=== PATIENT | female | born 1960 | race Caucasian/White ===

== ENCOUNTER 2022-05-08 13:29 | Outpatient (CLI) | payer SELFPAY ==
[2022-05-08 15:06] LABS: Albumin* 4.5 g/dL (3.3-5.0)
[2022-05-08 15:07] LABS: Chloride* 102 mmol/L (96-114); Potassium* 4.7 mmol/L (3.6-5.1); Sodium* 138 mmol/L (135-149)
[2022-05-08 15:09] LABS: Aspartate Amino Transferase* 28 U/L (12-35); Bilirubin Total* 0.8 mg/dL (0.1-1.5); Blood Urea Nitrogen* 13 mg/dL (7-30); Carbon Dioxide* 30 mmol/L (20-32); Cholesterol* 245 mg/dL (90-199); Creatinine* 0.9 mg/dL (0.5-1.5); Estimated Glomerular Filt Rate 72 ml/min; Glucose* 86 mg/dL (60-115)
[2022-05-08 15:10] LABS: Alanine Aminotransferase* 22 U/L (4-35); Alkaline Phosphatase* 55 U/L (40-150); Calcium* 9.3 mg/dL (8.4-10.6); HDL Cholesterol* 50 mg/dL (>=50); LDL Cholesterol Calculated 174 mg/dL (<100); Triglycerides* 103 mg/dL (40-149)
== END 2022-05-08 13:30 | disposition home or self-care (01) ==
PROVIDERS: PCP Physician Assistant Medical; Visit Provider Physician Assistant Medical
DX: Z00.00 Encounter for general adult medical examination without abnormal findings (principal); E78.5 Hyperlipidemia, unspecified; Z13.29 Encounter for screening for other suspected endocrine disorder
CPT/HCPCS: 80053; 80061; 84443

== ENCOUNTER 2022-06-03 10:11 | Outpatient (CLI) | payer SELFPAY ==
--- NOTE | 2022-06-03 10:45 | CRLHL7_ITS ---
For Patients: As a result of the Century Cures Act, medical imaging exams and procedure reports are released immediately into your electronic medical record. You may view this report before your referring provider. If you have questions, please contact your health care provider. BILATERAL SCREENING MAMMOGRAM WITH COMPUTER-AIDED DETECTION AND TOMOSYNTHESIS TECHNIQUE: CC and MLO views were obtained. These mammographic images have been obtained using full-field digital technique. These mammographic images were interpreted with the benefit of computer-aided detection. Breast Tomosynthesis was used in this interpretation. COMPARISON FILM: 09/14/20, 07/01/18. FINDINGS: The breasts are heterogeneously dense, which may obscure small masses IMPRESSION: There is no radiographic evidence for malignancy. ASSESSMENT: BI-RADS Category 2: Benign RECOMMENDATION: Routine screening mammogram in 1 year. A lay language report of this examination will be provided to the patient. Gerardo Mills M.D. Diagnostic Radiologist [email or web address] ENEDINA/Dictated by: Gerardo Mills MD @ 06/03/2022 11:30:00 AM (Electronically Signed)
== END 2022-06-03 10:12 | disposition home or self-care (01) ==
LOC: MAMMO 10:18
PROVIDERS: PCP Physician Assistant Medical; Visit Provider Physician Assistant Medical
DX: Z12.31 Encounter for screening mammogram for malignant neoplasm of breast (principal); R92.2 Inconclusive mammogram
CPT/HCPCS: 77063; 77067

== ENCOUNTER 2022-10-03 09:36 | Outpatient (CLI) | payer SELFPAY | END 2022-10-03 09:37 | disposition home or self-care (01) | LOC: NFLDREF 10-04 08:37 | PROVIDERS: PCP Physician Assistant Medical; Referring Provider Physician Assistant Medical; Visit Provider Physician Assistant Medical | DX: E78.5 Hyperlipidemia, unspecified (principal) | CPT/HCPCS: 80061; 80076 ==

== ENCOUNTER 2024-02-03 09:09 | Outpatient (CLI) | payer MEDICARE, SELFPAY | END 2024-02-03 09:10 | disposition home or self-care (01) | PROVIDERS: PCP Physician Assistant Medical; Visit Provider Physician Assistant Medical | DX: Z13.21 Encounter for screening for nutritional disorder (principal); E78.5 Hyperlipidemia, unspecified; L60.8 Other nail disorders; Z13.0 Encounter for screening for diseases of the blood and blood-forming organs and certain disorders involving the immune mechanism; Z13.6 Encounter for screening for cardiovascular disorders; Z13.1 Encounter for screening for diabetes mellitus | CPT/HCPCS: 80053; 80061; 82306; 82607; 84443 ==

== ENCOUNTER 2024-04-13 13:40 | Outpatient (CLI) | payer MEDICARE, SELFPAY ==
--- NOTE | 2024-04-13 14:00 | CRLHL7_ITS ---
For Patients: As a result of the Century Cures Act, medical imaging exams and procedure reports are released immediately into your electronic medical record. You may view this report before your referring provider. If you have questions, please contact your health care provider. BILATERAL SCREENING MAMMOGRAM WITH COMPUTER-AIDED DETECTION AND TOMOSYNTHESIS TECHNIQUE: CC and MLO views were obtained. These mammographic images have been obtained using full-field digital technique. These mammographic images were interpreted with the benefit of computer-aided detection. Breast Tomosynthesis was used in this interpretation. COMPARISON FILM: 06/03/22, 09/14/20, 07/01/18. FINDINGS: The breasts are heterogeneously dense, which may obscure small masses. IMPRESSION: There is no radiographic evidence for malignancy. ASSESSMENT: BI-RADS Category 1: Negative RECOMMENDATION: Routine screening mammogram in 1 year. A lay language report of this examination will be provided to the patient. Gerardo Mills M.D. Diagnostic Radiologist [email or web address] SP/Dictated by: Gerardo Mills MD @ 04/15/2024 12:14:00 PM (Electronically Signed)
--- NOTE | 2024-04-13 14:30 | CRLHL7_ITS ---
For Patients: As a result of the Century Cures Act, medical imaging exams and procedure reports are released immediately into your electronic medical record. You may view this report before your referring provider. If you have questions, please contact your health care provider. DXA BONE MINERAL DENSITY STUDY Current height (in): 64. Weight (lb): 160. Menopause age: 51. Ethnicity: White. 1. Have you had a previous hip or vertebral fracture? No. 2. Have you had any fractures during your adult life which did not result from significant trauma (e.g., auto accident)? No. 3. Did either of your parents have a hip fracture? No. 4. Do you smoke? No. 5. Have you ever taken Glucocorticoids? No. 6. Do you have rheumatoid arthritis? No. 7. Do you have secondary osteoporosis? No. 8. Do you drink 3 or more alcoholic drinks per day? No. 9. Are you being treated for osteoporosis? No. 10. Have you ever taken any of the following medications: Actonel, Evista, Fosamax, Miacalcin, Reclast, Boniva, Forteo, HRT (i.e. estrogen/hormone therapy), Protelos, Prolia, Vitamin D, Calcium, other ??? please specify. ANSWER: Yes, vitamin D, calcium. 11. Do you have any of the following medical conditions: Anorexia or bulimia, asthma or emphysema, end stage renal disease, hyperparathyroidism, any seizure disorders, cancer, inflammatory bowel diseases, hysterectomy, other ??? please specify. ANSWER: No. 12. What was your maximum height (inches)? 64.5. 13. Do you perform weight bearing exercise regularly? Yes. 14. Do you regularly consume dairy products? Yes. 15. Do you drink caffeinated beverages? Yes. 16. At what age did your period start? 12. 17. Are you premenopausal? No. 18. How many full term pregnancies have you had? 1. 19. Have you ever missed your period for more than 6 months in a row (not including or menopause)? No. TECHNIQUE: Bone mineral density study was performed using the [employer]. FINDINGS: The results of the study expressed as bone mineral density (BMD) are as follows: Lumbar spine L1 to L4: BMD: 0.890 g/cm2. T-score: -1.4. Z-score: 0.4. Neck Left: BMD: 0.775 g/cm2. T-score: -0.7. Z-score: 0.8. Right: BMD: 0.734 g/cm2. T-score: -1.0. Z-score: 0.5. Total Left: BMD: 0.923 g/cm2. T-score: -0.2. Z-score: 1.1. Right: BMD: 0.928 g/cm2. T-score: -0.1. Z-score: 1.1. IMPRESSION: Osteopenia. *Comparison exams done prior to 12/2019 were performed on different unit, [facility]. FRAX 10-year Fracture Risk Major Osteoporotic Fracture: 7.9 percent Hip Fracture: 0.06 percent Reported Risk Factors: [place] () Neck BMD=0.734, BMI=27.5 Gerardo Mills M.D. Diagnostic Radiologist [email or web address] ENEDINA/Dictated by: Gerardo Mills MD @ 04/14/2024 12:55:00 PM (Electronically Signed)
== END 2024-04-13 13:41 | disposition home or self-care (01) ==
PROVIDERS: PCP Physician Assistant Medical; Visit Provider Physician Assistant Medical
DX: Z12.31 Encounter for screening mammogram for malignant neoplasm of breast (principal); R92.333 Mammographic heterogeneous density, bilateral breasts; M81.0 Age-related osteoporosis without current pathological fracture; M85.89 Other specified disorders of bone density and structure, multiple sites
CPT/HCPCS: 77063; 77067; 77080; 80076

== ENCOUNTER 2024-05-02 07:05 | Outpatient (CLI) | payer MEDICARE, SELFPAY ==
--- NOTE | 2024-05-02 07:15 | CRLHL7_ITS ---
For Patients: As a result of the Cures Act, medical imaging exams and procedure reports are released immediately into your electronic medical record. You may view this report before your referring provider. If you have questions, please contact your health care provider. INDICATION: Elevated LFTs COMPARISON: none TECHNIQUE: Real time don scale imaging and color Doppler analysis was performed of the right upper quadrant. FINDINGS: Slightly increased echotexture of the portal triads noted. No intrahepatic mass. The liver measures 17.3 cm. There is a normal appearance of the hepatic IVC and proximal abdominal aorta. There is no evidence of ascites. The gallbladder is of normal size and there is no evidence of intraluminal stones or sludge. The gallbladder wall measures 1.7 mm in thickness. The common bile duct is of normal size and measures 2.1 mm in diameter at the level of the clara hepatis. The visualized pancreas appears normal. There is no evidence of a stone or hydronephrosis within the right kidney. The right kidney measures 10.9 cm in length. IMPRESSION: Slightly echogenic portal triads within the liver which could suggest changes related to hepatitis. No intrahepatic mass or ascites. Normal gallbladder. Dictated by Gerardo Mills MD @ 05/02/2024 4:43:19 PM (Electronically Signed)
== END 2024-05-02 07:06 | disposition home or self-care (01) ==
LOC: US 07:05
PROVIDERS: PCP Physician Assistant Medical; Visit Provider Physician Assistant Medical
DX: R79.89 Other specified abnormal findings of blood chemistry (principal)
CPT/HCPCS: 76705

== ENCOUNTER 2024-05-05 13:25 | Outpatient (CLI) | payer MEDICARE, SELFPAY | END 2024-05-05 13:26 | disposition home or self-care (01) | LOC: NFLDREF 05-06 11:01 | PROVIDERS: PCP Physician Assistant Medical; Referring Provider Physician Assistant Medical; Visit Provider Physician Assistant Medical | DX: R79.89 Other specified abnormal findings of blood chemistry (principal); M18.12 Unilateral primary osteoarthritis of first carpometacarpal joint, left hand | CPT/HCPCS: 80074; 80076; 82977; 86703; 86706; 86803; 87340 ==

== ENCOUNTER 2024-05-20 09:33 | Day surgery (SDC) | payer MEDICARE, SELFPAY ==
[2024-05-20 09:53] VITALS: BMI 28.7
[2024-05-20 09:57] VITALS: BP 123/76; PULSE 51; RESP 16; TEMP 36.5; O2SAT 99
[2024-05-20] MEDS: SODIUM CHLORIDE 0.9 % (FLUSH) 10 ML SYRINGE IVF (10:00)
[2024-05-20 10:17] VITALS: BP 125/81; PULSE 66; RESP 16; O2SAT 100
[2024-05-20] MEDS: MIDAZOLAM HCL 1 MG/ML inj IVP (10:17)
[2024-05-20] MEDS: fentaNYL 100 MCG/2 ML inj IVP (10:17)
--- NOTE | 2024-05-20 10:25 | W.PM.H&PU ---
History & Physical Update History & Physical Update H&P Reviewed and patient assessed: No changes noted
--- NOTE | 2024-05-20 10:28 | SUR.PREOP ---
TIME?OUT:?1015, left hand PT/RN/MDA?VERIFICATION?OF?SURGICAL?SITE,?PROCEDURE,?AND?CONSENT OBTAINED?PRIOR?TO?INVASIVE?PROCEDURE.
--- NOTE | 2024-05-20 10:31 | SUR.PREOP ---
TIME?OUT:?left hand, 1015- previous note has time error PT/RN/MDA?VERIFICATION?OF?SURGICAL?SITE,?PROCEDURE,?AND?CONSENT OBTAINED?PRIOR?TO?INVASIVE?PROCEDURE.
[2024-05-20] MEDS: 0.9 % SODIUM CHLORIDE 500 ML 500 ML 100 ML IV (10:42)
[2024-05-20] MEDS: CEFAZOLIN 2 GM in 0.9 % SODIUM CHLORIDE Mini-bag 100 ML IVPB (10:51)
--- NOTE | 2024-05-20 10:55 | P.NB_ITS ---
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 Images saved: Yes Medications given in 5ml increments after negative aspiration: Ropivicaine %: 0.5 mL: 30 Needle gauge: 22 Patient tolerated procedure well: Yes Additional comments: Needle noted adjacent to nerve Block Charges Block Charge (with Pro Fee): Brachial Plexus Use of Ultrasound Machine for Block: Yes- US Guidance/pain block
--- NOTE | 2024-05-20 10:56 | W.ANESCHARGE ---
Anesthesia Charges Start Date/Time Anesthesia Start Date: 05/20/24 Anesthesia Start Time: 10:34 Stop Date/Time Anesthesia Stop Date: 05/20/24 Anesthesia Stop Time: 12:26
--- NOTE | 2024-05-20 11:00 | CRLHL7_ITS ---
For Patients: As a result of the Cures Act, medical imaging exams and procedure reports are released immediately into your electronic medical record. You may view this report before your referring provider. If you have questions, please contact your health care provider. IMPRESSION : LEFT THUMB CMC, LRTI, RING FINGER TRIGGER RELEASE FLUORO TIME 20.8 SEC Five images of the left hand, please see the surgical report. Dictated by Sterling Dunbar MD @ 05/21/2024 7:35:45 PM (Electronically Signed)
--- NOTE | 2024-05-20 11:01 | SUR.OPER ---
PATIENT QUESTIONS ANSWERED SATISFACTORILY PREOPERATIVELY.? PATIENT BROUGHT TO OR #4 PER CART AFTER ADMINISTRATION OF A BLOCK.? Patient positioned supine on OR #4 bed.? The perioperative?team supported arms bilaterally on arm boards.? Final approval of positioning by surgeon.?
--- NOTE | 2024-05-20 12:03 | PM.ORPRC ---
Procedure Note Date of procedure: 05/20/24 Procedure: PREOPERATIVE DIAGNOSIS: 1. Left thumb CMC osteoarthritis, primary, severe 2. Left ring finger flexor tenosynovitis, trigger finger POSTOPERATIVE DIAGNOSIS: 1. Left thumb CMC osteoarthritis, primary, severe 2. Left ring finger flexor tenosynovitis, trigger finger PROCEDURE: 1. Left thumb CMC arthroplasty/suspensionplasty with Arthrex FiberLock suspension system 2. Left open ring finger trigger finger release SURGEON: Salazar Irizarry M.D. TRAFFIC INCIDENT MANAGEMENT MANAGER: Eren FRANCO. Of note, an catering assistant was critical for this case to aid in patient positioning, arm manipulation, instrument exchange, and closure. ANESTHESIA: Regional block + MAC EBL: 5 mL TOURNIQUET: 65 minutes at 225 torr-forearm tourniquet IMPLANTS: Arthrex Fiberlock system (DX Fibertak & 3.5mm PEEK SwiveLock SL anchor) COMPLICATIONS: None evident INDICATIONS: The patient is a pleasant 64-year-old female. They have experienced significant pain about the thumb CMC joint on the left upper extremity. In addition, left ring finger has been catching/triggering. Nonoperative management including cortisone injection, activity modification, bracing, rest, oral NSAIDs, etc has not provided long-term relief. Given the failure of nonoperative management, surgery was recommended. FINDINGS: Severe osteoarthritis of the 1st CMC joint seen by osteophyte formation, chondral loss, and joint space narrowing, consistent with CMC osteoarthritis DESCRIPTION OF PROCEDURE: After a thorough discussion of risks, benefits, and alternatives, the patient was brought to the operating room and placed upon the operating table. Induction of anesthesia was undertaken as previously noted. 1 g IV Ancef was administered within 1 hr incision preoperatively. Appropriate time-out was performed identifying proper patient, site, and procedure. The left upper extremity was prepped and draped in the appropriate sterile fashion using ChloraPrep. The limb was exsanguinated and tourniquet inflated. We began with the left ring trigger finger release: An incision was made on the palmar surface of the hand overlying the MCP joint region of the appropriate digit(s) respecting the palmar creases being cautious not to cross these perpendicularly. Sharp incision through the skin, and blunt dissection through subcutaneous tissue allowing protection of crossing neurologic structures. The A1 yoseph was visualized directly. It was incised sharply with a 15 blade. It was released completely from its distal to proximal extent under direct visualization. The tendon was inspected and found to be mildly striated consistent with some friction. Otherwise, it was intact. The tendon was removed out of the wound, and further inspected. The patient was asked to manually flex and extend the digits and showed no further catching. The catching which was visualized after tourniquet inflation, was no longer evident with reproduction of a manual fist and relaxation. Closure was performed with 4-O nylon in interrupted fashion. Soft dressings were applied, and the patient was transferred to the recovery room in stable condition. We then turned our attention to the left thumb CMC arthroplasty/suspensionplasty procedure: A longitudinal incision was made along the ulnar border of the 1st metacarpal extending to the scaphoid level. Sharp incision through skin and blunt dissection to subcutaneous tissue allowed identification and protection of the crossing neurovascular structures including the SBRN. The dorsal capsule off the metacarpal base was sharply divided and subperiosteally elevated. The crossing branch of radial artery was visualized in the proximal extent of the wound, its small branches to the capsule were coagulated, but the rest the artery was protected. The trapezium was freed from the surrounding capsular tissues circumferentially with a combination of 15 blade and a [place] blade. After freeing the trapezium from the superficial tissues, the bone was halved with a microsagittal saw a majority of the way through the bone. Caution was taken not to penetrate completely so as not to injure the FCR tendon in the deep portion of the wound. The osteotomy was completed with an osteotome. The fragments were then removed with a combination of a rongeur, and sharp dissection cautiously with the Chey[place] blade. The Arthrex CMC arthroplasty/suspensionplasty with Arthrex FiberLock suspension system kit was opened and utilized with appropriate steps. We drilled a K-wire from the 2nd metacarpal base aiming slightly distal and ulnar so as not to be in the 2nd-3rd intermetatarsal articulation. This was confirmed with fluoroscopy. The screw in sheath was then applied into the 2nd metacarpal base, the guide pin removed, drill applied, drilled removed, and anchor placed with excellent tactical feedback with the anchor engagement on the ulnar 2nd metacarpal cortical rim. Following this, we accessed the base of the 1st metacarpal on the radial side approximately mid axial line. A guide pin was placed and again confirmed fluoroscopically to be in the desired position. This was over drilled, and the fork tip Peek eyelet allowed the sutures to span across the metacarpal base approximately in the saddle and the anchor was engaged. This was all placed with the thumb in slight adduction and minor traction to maintain the arc of the 1st-2nd metacarpal bases. We tested by axial load on the metacarpal and found to have an excellent bounce back to this resting position. AB and adduction was still appropriate. A thorough irrigation with normal saline was then performed. Closure was performed with 3-0 Vicryl for capsule reapproximation and subcutaneous closure. 4-0 Monocryl for the subcuticular layer was performed. Finally, 4-0 nylon for the trigger finger release.. PLAN: 1. Elevate operative extremity at or above heart level. 2. Ice, acetominophen and/or ibuprofen, and Percocet for pain as needed. 3. Finger/wrist range of motion as tolerated. 4. Keep the splint clean, dry, and intact until follow-up. 5. Follow up with PA visit in 2-3 weeks removal of splint and OT visit for Orthoplast splint fabrication which should be scheduled immediately after the orthopedic clinic visit.
[2024-05-20 12:23] VITALS: BP 102/70; PULSE 57; RESP 16; TEMP 36.2; O2SAT 95
--- NOTE | 2024-05-20 12:26 | W.ANESCHARGE ---
Anesthesia Charges Start Date/Time Anesthesia Start Date: 05/20/24 Anesthesia Start Time: 10:34 Stop Date/Time Anesthesia Stop Date: 05/20/24 Anesthesia Stop Time: 12:26
[2024-05-20 12:40] VITALS: BP 110/75; PULSE 48; RESP 16; O2SAT 98
[2024-05-20 12:55] VITALS: BP 121/79; PULSE 49; RESP 16; O2SAT 99
[2024-05-20 13:15] VITALS: BP 117/78; PULSE 54; RESP 16; TEMP 36.2; O2SAT 100
== END 2024-05-20 13:45 | disposition home or self-care (01) ==
LOC: OR 09:34
PROVIDERS: PCP Physician Assistant Medical; Visit Provider Orthopaedic Surgery Sports Medicine
PROC: (CPT 25447; principal; 2024-05-20 11:00)
DX: M18.12 Unilateral primary osteoarthritis of first carpometacarpal joint, left hand (principal); M65.342 Trigger finger, left ring finger; M65.842 Other synovitis and tenosynovitis, left hand; G89.18 Other acute postprocedural pain
CPT/HCPCS: 25447; 26055; 01830; 64415; 73140; 76942; A4580; C1713; J0690; J1100; J2250; J2405; J2704; J2795; J3010; J7030

== ENCOUNTER 2024-06-08 13:30 | Outpatient (RCR) | payer MEDICARE, SELFPAY ==
--- NOTE | 2024-06-03 14:19 | OT.OPOE ---
OT Outpatient Ortho Eval OT Outpatient Ortho Eval* Start: 06/03/24 07:01 Freq: Status: Active Protocol: Document 06/03/24 07:02 AMB (Rec: 06/03/24 12:25 AMB [id number]) E-signed By Radha Lawson, OTR/L, CLT, TROUBLE SHOOTING MECHANIC OT OP Ortho Eval Details Complexity Complexity Low Insurance Information Insurance Information [employer] Outpatient History/Precautions Current Condition/Medical Diagnosis Referring Provider Dr Irizarry Medical Diagnoses Z98.890 Post LUE CMC arthroplasty and LUE RF TFR Treatment Diagnosis R53.1 Weakness LUE hand M25.642 Stiffness LUE hand Date of Onset 05/20/24 Other Conditions PMH (copied from ortho chart): Active Problems (Updated 05/05 @ 13:17 by Aspen Vang) Trigger ring finger of left hand (Acute) M65.342 - Trigger finger, left ring finger (ICD-10) Osteopenia (Acute ~04/2024) M85.80 - Other specified disorders of bone density and structure, unspecified site ( ICD-10) Elevated liver function tests (Acute) 05/02/2024- slightly increased echogenic portal triads within the liver; changes related hepatitis? R79.89 - Other specified abnormal findings of blood chemistry (ICD-10) Nail deformity (Acute) L60.8 - Other nail disorders ( ICD-10) COVID-19 (Acute) U07.1 - COVID-19 (ICD-10) Hyperlipidemia (Acute) 10/30/2020-LDL 150, HDL 63 On atorvastatin. E78.5 - Hyperlipidemia, unspecified (ICD-10) Vaginal dryness (Acute) OTC moisturizer N89.8 - Other specified noninflammatory disorders of vagina (ICD-10) Arthritis of carpometacarpal ( CMC) joint of left thumb ( Acute) 05/05/2022-continue Meloxicam 7.5 mg daily; has consulted with Orthopedics. Holding off on surgery at this time M18.12 - Unilateral primary osteoarthritis of first carpometacarpal joint, left hand (ICD-10) Medical History (Reviewed @ 13:00 by Zamzam Trivedi ~ LAT ATC) Pain of left breast N64.4 - Mastodynia (ICD-10) Ganglion cyst M67.40 - Ganglion, unspecified site (ICD-10) Surgical History (Reviewed @ 13:00 by Zamzam Trivedi ~ LAT ATC) Status post de Quervain's release surgery BUE Z98.890 - Other specified postprocedural states (ICD-10) History of wisdom tooth extraction K08.409 - Partial loss of teeth, unspecified cause, unspecified class (ICD-10) Hx of appendectomy Z90.49 - Acquired absence of other specified parts of digestive tract (ICD-10) History of fusion of cervical spine Z98.1 - Arthrodesis status ( ICD-10) Hx of hand surgery Z98.890 - Other specified postprocedural states (ICD-10) Medical/Functional History Medical History Reviewed Yes Prior Level of Function/Mobility Pt has had pain in her LUE thumb and RF for several years , RF has been stenosing x 2+ yrs. Social History Employment Status Retired Hobbies Golfing Fitness Enjoys walking / golfing Ortho Subjective Subjective Subjective Pt states she just got her post-op dressing removed prior to OT visit today. Pt states she really is only having mild discomfort in her LUE hand / thumb / RF but no real pain. Pt rates her discomfort at a 1 -2/10, denies paresthesia and no sharp, shooting pain. Pt states she is hoping to learn exercises that she can do on her own as [place]. Goniometric Comments Goniometric Comments Goniometric Comments 06/03/24 AROM of BUE is WNL throughout with the exception of the LUE wrist and hand which has mild limitations as follows: LUE thumb: RA = 55 PA = 60 IP = 55 Wrist: Flex = 55 Ext = 50 UD = 25 RD = 30. Hand Pinch/Maths Tutor Strength Comments Comments 06/03/24 Too early for strength testing. OT Problems Problems Problems Decreased Strength,Decreased Range of Motion,Pain,Decreased Coordination,Lifting,Gripping ,Pinching Other Problems Opening Containers,Computer Patient Potential Good Assessment Assessment Assessment Pt is a very pleasant 64yo referred to OT to address weakness, limited ROM, pain and custom splinting needs following her LUE CMC arthroplasty and LUE RF TFR. Pt is 2 weeks post surgery and is doing exceptionally well. Her surgical incisions are healing nicely, no drainage and no s/s of infection at either site. Pt has minimal swelling and mild limitations in wrist and thumb AROM, RF AROM is WNL. Pt will benefit from skilled OT intervention for provision of custom radial forearm based thumb spica splint for protected healing of the CMC arthroplasty as well as for pt education and home program for TFR and CMC rehabilitation. Pt will be seen one more visit and will be discharged to independent program as she will be spending her winter in [place] . Occupational Therapy Treatment Plan - OP Potential Rehabilitation Potential Good Barriers Barriers to goal attainment Pt will only have 2 visits as she will be leaving for her winter home in a week. Set Goals Goals Set with Patient Yes Goals Goals 1. Pt will be independent and compliant with HEP in order to resume full, pain-free use of the involved UE. 3 weeks 2. Pt will demonstrate full, pain-free AROM of the involved UE in order to improve ability to grasp and hold. 6 weeks 3. 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 8 weeks. Treatment Plan Treatment Plan Evaluation,Edema Control, Manual Therapy,Splinting,Wound Care/Scar Management, Therapeutic Exercise, Therapeutic Activities,Self Care/Home Management,Education Expected Frequency 2 visits Expected Duration 2-4 Weeks Home Program Home Program Home Program Initiated Home Program Specifics 06/03/24 Provided training and practice in HEP for AROM of the LUE fingers, thumb, wrist and forearm as well as non- resisted muscle pumps for edema reduction. She was also provided with a custom fabricated, forearm based thumb spica splint to be worn at all times except with HEP and hygiene / shower. Certification Certification Statement I Certify That: Therapy Services Provided, Therapy Plan Established, Therapy Plan Reviewed Certification Information Clinic ID # [id number] Initial Certification Date 06/03/24 Recertification Due Date 09/01/24 Provider Signature Required Yes Provider Signature Shows Agreement With POC & Medical Necessity Physician NPI Number Write NPI# Here Physician Comment/Change Comment or Changes Physician Signature & Date Requested Please Sign/Date Here
== END 2024-06-08 16:04 | disposition home or self-care (01) ==
PROVIDERS: PCP Physician Assistant Medical; Visit Provider Orthopaedic Surgery Sports Medicine
DX: Z98.890 Other specified postprocedural states (principal); R53.1 Weakness; M25.642 Stiffness of left hand, not elsewhere classified; Z51.89 Encounter for other specified aftercare
CPT/HCPCS: 97110; 97165; L3806; X5282

== ENCOUNTER 2024-08-29 13:25 | Outpatient (CLI) | payer MEDICARE, SELFPAY ==
--- NOTE | 2024-08-29 13:45 | MR_ITS ---
Patient: PRABHAKAR ARECHIGA Facility:?[facility] Patient ID:?[id number] Site Patient ID:?[id number]. Site :?[id number] Study:?MRI-Extremity Left W/O THUMB-08/29/2024 11:39:29 AM Ordering Physician:?SANDRO HERRMANN Final Report: EXAM: MRI OF THE LEFT THUMB, WITHOUT CONTRAST CLINICAL INDICATION: Postprocedural pain. COMPARISON PLAIN FILMS: 08/26/2024, 05/20/2024 and 06/10/2019. COMPARISON CROSS-SECTIONAL IMAGING STUDIES: None. TECHNICAL: Axial, sagittal and coronal T1 and STIR images. FINDINGS: OSSEOUS STRUCTURES AND JOINTS: Postoperative change from CMC joint suspension arthroplasty with resection of the trapezium and postoperative changes in the base of the 1st and 2nd metacarpals. Intramedullary edema in the base of the 1st and 2nd metacarpals. No fractures are evident. Moderate chondromalacia in the 1st MCP joint. No joint effusion. SOFT TISSUES: No subcutaneous fluid collection or hematoma. Mild subcutaneous edema in the base of the thumb. MYOTENDINOUS STRUCTURES: No muscle atrophy or edema. Myotendinous junctions are maintained. No tendon tear. IMPRESSION: 1. Postoperative change from CMC joints suspension arthroplasty. Reactive edema in the base of the 1st and 2nd metacarpals. 2. Mild subcutaneous edema in the base of the thumb. No fluid collection or hematoma. 3. Moderate chondromalacia in the 1st MCP joint. Dictated by Andry Paiz MD @ 08/30/2024 1:02:53 PM Signed by:?Andry Paiz MD @08/30/2024 1:02:53 PM (Electronic Signature)
== END 2024-08-29 13:26 | disposition home or self-care (01) ==
LOC: MRI 13:26
PROVIDERS: PCP Physician Assistant Medical; Visit Provider Physician Assistant Surgical
DX: Z98.890 Other specified postprocedural states (principal); M94.242 Chondromalacia, joints of left hand
CPT/HCPCS: 73218

== ENCOUNTER 2025-04-20 08:35 | Outpatient (CLI) | payer MEDICARE, SELFPAY | END 2025-04-20 08:36 | disposition home or self-care (01) | LOC: NFLDREF 23:30 | PROVIDERS: PCP Physician Assistant Medical; Referring Provider Physician Assistant Medical; Visit Provider Physician Assistant Medical | DX: E78.5 Hyperlipidemia, unspecified (principal) | CPT/HCPCS: 80053; 80061 ==

== ENCOUNTER 2025-04-26 14:39 | Outpatient (CLI) | payer MEDICARE, SELFPAY ==
--- NOTE | 2025-04-26 15:20 | CRLHL7_ITS ---
For Patients: As a result of the Century Cures Act, medical imaging exams and procedure reports are released immediately into your electronic medical record. You may view this report before your referring provider. If you have questions, please contact your health care provider. INDICATION: BILATERAL SCREENING MAMMOGRAM, ASYMPTOMATIC 65 Y/O FEMALE COMPARISON: 04/13/2024, 06/03/2022, 09/14/2020 TECHNIQUE: Digital mammogram in CC and MLO projections including computer-aided detection (CAD) and tomosynthesis. BREAST COMPOSITION: The breasts are heterogeneously dense, which may obscure small masses. FINDINGS: No suspicious findings. ASSESSMENT: BI-RADS 1 Negative RECOMMENDATION: Annual screening mammogram. A lay language report of this examination will be provided to the patient. Dictated by: Felicia Cole MD @ 04/29/2025 07:28:31 (Electronically Signed)
== END 2025-04-26 14:40 | disposition home or self-care (01) ==
LOC: MAMMO 14:40
PROVIDERS: PCP Physician Assistant Medical; Visit Provider Physician Assistant Medical
DX: Z12.31 Encounter for screening mammogram for malignant neoplasm of breast (principal); R92.333 Mammographic heterogeneous density, bilateral breasts
CPT/HCPCS: 77063; 77067